=== PATIENT | female | born 1940 | race Caucasian/White ===

== ENCOUNTER 2017-05-18 11:12 | Emergency (ER) | payer MEDICARE, OTHER ==
[~2017-05-18] VITALS: Ht 165.1 cm; Wt 79.4 kg
[~2017-05-18 11:12] MED LIST: ASPIR-TRIN325 MG PO; BIOFLEX TABLET1 EACH PO; FISH OIL500 MG PO; FLUOXETINE HCL10 M1 PO; LECITHIN1200 M1 PO; VITAMIN C1000 MG PO; VITAMIN D1000 UNIT PO
== END 2017-05-18 12:31 | disposition home or self-care (01) ==
LOC: ED 11:12
PROC: 0W3Q7ZZ Control Bleeding in Respiratory Tract, Via Natural or Artificial Opening (ICD-10-PCS; principal; 2017-05-18)
DX: R04.0 Epistaxis (principal); Z98.890 Other specified postprocedural states; Z88.8 Allergy status to other drugs, medicaments and biological substances; Z79.82 Long term (current) use of aspirin; Z79.899 Other long term (current) drug therapy
CPT/HCPCS: 30901; 99282